=== PATIENT | female | born 2000 | race Caucasian/White ===

== ENCOUNTER 2019-02-12 11:19 | Emergency (ER) | payer MEDICAID ==
[~2019-02-12] VITALS: Ht 157.5 cm; Wt 53.1 kg
[2019-02-12 11:21] VITALS: BP 120/74; Ht 157.5 cm; Wt 53.1 kg
== END 2019-02-12 12:22 | disposition home or self-care (01) ==
LOC: ED 11:19
DX: J02.9 Acute pharyngitis, unspecified (principal)
CPT/HCPCS: 87491; 87591; J0696

== ENCOUNTER 2019-03-12 14:52 | Emergency (ER) | payer OTHER ==
[~2019-03-12] VITALS: Ht 157.5 cm; Wt 52.8 kg
[2019-03-12 15:17] VITALS: Ht 157.5 cm; Wt 52.8 kg
[2019-03-12 19:02] VITALS: BP 122/70
== END 2019-03-12 19:02 | disposition home or self-care (01) ==
LOC: ED 14:52
DX: B37.9 Candidiasis, unspecified (principal); J03.90 Acute tonsillitis, unspecified
CPT/HCPCS: 87491; 87591